=== PATIENT | male | born 1990 | race Caucasian/White ===

== ENCOUNTER 2017-03-14 18:25 | Outpatient (CLI) ==
[2015-10-27 18:43] VITALS: BMI 36.9
== END 2017-03-14 18:26 | disposition short-term general hospital (02) ==
LOC: AMBL 18:25
PROVIDERS: ATTEND Internal Medicine
DX: S09.90XA Unspecified injury of head, initial encounter (principal); S80.811A Abrasion, right lower leg, initial encounter; M54.9 Dorsalgia, unspecified; M79.609 Pain in unspecified limb; R51 Headache; V89.2XXA Person injured in unspecified motor-vehicle accident, traffic, initial encounter